=== PATIENT | female | born 1970 | race Two or more races ===

== ENCOUNTER 2020-06-08 07:12 | Inpatient (IN) | payer OTHER ==
[2020-06-08] MEDS ORDERED: SODIUM CHLORIDE 1,000 ML IV STA ×3 (07:53→13:23)
[2020-06-08] MEDS ORDERED: ONDANSETRON 4 MG/2 ML VIAL IVPUSH ONE (07:53)
[2020-06-08] MEDS ORDERED: FAMOTIDINE 20 MG/50 ML IVPB 20 MG/50 ML MG IVPB ONE ×2 (07:53→08:18)
[2020-06-08] MEDS ORDERED: ACETAMINOPHEN 1000 MG/100 ML VIAL (NON FORMULARY) IVPB ONE (07:55)
[2020-06-08] MEDS ORDERED: ONDANSETRON 4 MG/2 ML VIAL ONE (08:19)
[2020-06-08] MEDS ORDERED: ACETAMINOPHEN INJECTION 100 ML IVPB ONE (08:22)
[2020-06-08] MEDS ORDERED: morphine CARPU-JECT 4 MG/1 ML DISP.SYRIN IVPUSH ONE ×3 (08:28→14:50)
[2020-06-08 08:47] LABS: VENOUS BASE EXCESS -2.2 mmol/L (-2-2); VENOUS O2 SATURATION 63.5 % (70-80); VENOUS PCO2 33.3 mmHg (38-52); VENOUS PH 7.423 (7.310-7.410)
[2020-06-08 08:56] LABS: HEMATOCRIT 43.8 % (32.4-45.2); MCH 31.6 pg (25.7-33.7); MCHC 34.3 g/dl (32.0-36.0); MEAN CELL VOLUME 92.1 fl (80-96); MEAN PLT VOLUME 10.3 fl (7.5-11.1); PLATELET COUNT 133 K/MM3 (134-434); RBC 4.76 M/mm3 (3.60-5.2)
[2020-06-08 09:01] LABS: CHLORIDE 83 mmol/L (98-107); POTASSIUM 3.2 mmol/L (3.5-5.1); SODIUM 125 mmol/L (136-145)
[2020-06-08 09:04] LABS: ALBUMIN 4.5 g/dl (3.4-5.0); GLUCOSE,RANDOM 161 mg/dL (74-106)
[2020-06-08 09:05] LABS: ANION GAP 17 MMOL/L (8-16); BLOOD UREA NITROGEN 7.8 mg/dL (7-18); CALCIUM 10.3 mg/dL (8.5-10.1); CO2 25 mmol/L (21-32); MAGNESIUM 1.2 mg/dL (1.8-2.4)
[2020-06-08 09:06] LABS: SGOT/AST 127 U/L (15-37); SGPT/ALT 148 U/L (13-61)
[2020-06-08 09:08] LABS: BILIRUBIN,TOTAL 1.3 mg/dL (0.2-1); CREATININE 0.6 mg/dL (0.55-1.3); TOT PROT 8.9 g/dl (6.4-8.2)
[2020-06-08] MEDS ORDERED: MAGNESIUM SULF 50% (8.12 MEQ/2 ML-1 GM VIAL) IVPB ONE (09:08)
[2020-06-08 09:09] LABS: ALK PHOS 70 U/L (45-117)
[2020-06-08 09:14] LABS: LIPASE 5674 U/L (73-393)
[2020-06-08] MEDS ORDERED: morphine SULFATE 4 MG/ML VIAL ONE ×3 (09:37→14:53)
[2020-06-08] MEDS ORDERED: MAGNESIUM SULFATE IN WATER 2 GM/50 ML IVPB IVPB ONE (09:38)
[2020-06-08 11:59] LABS: EPI CELLS 8 /uL (0-25.1); HYALINE CASTS 1 /uL (0-3.1); URINE APPEARANCE CLEAR; URINE BACTERIA 954 /uL (0-1359); URINE BILIRUBIN NEGATIVE (NEGATIVE); URINE COLOR YELLOW; URINE GLUCOSE (UA) TRACE (NEGATIVE); URINE KETONE 4+ (NEGATIVE); URINE LEUK ESTERASE NEGATIVE (NEGATIVE); URINE NITRITE NEGATIVE (NEGATIVE); URINE PROTEIN 3+ (NEGATIVE); URINE RBC 83 /uL (0-23.9); URINE WBC 4 /uL (0-25.8)
[2020-06-08 12:38] LABS: CALCIUM 8.9 mg/dL (8.5-10.1)
[2020-06-08 12:42] LABS: CREATININE 0.5 mg/dL (0.55-1.3)
[2020-06-08 12:43] LABS: BILIRUBIN,TOTAL 1.4 mg/dL (0.2-1)
[2020-06-08 12:44] LABS: TOT PROT 7.7 g/dl (6.4-8.2)
[2020-06-08 13:12] LABS: POTASSIUM 2.7 mmol/L (3.5-5.1)
[2020-06-08] MEDS ORDERED: POTASSIUM CHLORIDE TABS 10 MEQ TABLET.ER (FP) PO ONE (13:17)
[2020-06-08] MEDS ORDERED: KCL 10 MEQ IVPB 10 MEQ/100 ML INFUS.BAG IVPB ONE ×3 (13:44→15:52)
[2020-06-08] MEDS ORDERED: POTASSIUM CHLORIDE TABS 20 MEQ TABLET.ER (FP) PO ONE (13:44)
[2020-06-08] MEDS: KCL 10 MEQ IVPB 10 MEQ/100 ML INFUS.BAG IVPB SCH ×3 (13:51→15:55)
[2020-06-08] MEDS ORDERED: amLODIPine BESYLATE 5 MG TABLET (FP) PO ONE (14:17)
[2020-06-08] MEDS ORDERED: amLODIPine BESYLATE 5 MG TABLET (FP) ONE (14:21)
[2020-06-08] MEDS ORDERED: LACTATED RINGERS SOLUTION 1,000 ML IV SCH (17:00)
[2020-06-08] MEDS ORDERED: MORPHINE SULFATE 2 MG/ML VIAL IVPUSH PRN (17:03)
[2020-06-08] MEDS ORDERED: TRIMETHOBENZAMIDE HCL 200MG/2ML INJ IM ONE (21:17)
[2020-06-09 02:24] LABS: POTASSIUM 4.1 mmol/L (3.5-5.1)
[2020-06-09 02:25] LABS: CALCIUM 9.6 mg/dL (8.5-10.1)
[2020-06-09 02:26] LABS: BLOOD UREA NITROGEN 5.6 mg/dL (7-18)
[2020-06-09 02:31] LABS: CREATININE 0.4 mg/dL (0.55-1.3)
[2020-06-09 05:41] VITALS: BMI 27.6
[2020-06-09] MEDS ORDERED: ACETAMINOPHEN 1000 MG/100 ML VIAL (NON FORMULARY) IVPB ONE (06:34)
[2020-06-09 07:57] LABS: BASO % 0.2 % (0-2.0); EOS % 0.1 % (0-4.5); HEMATOCRIT 41.1 % (32.4-45.2); HEMOGLOBIN 13.9 GM/dL (10.7-15.3); LYMPH % 13.8 % (8-40); MCH 31.3 pg (25.7-33.7); MCHC 33.7 g/dl (32.0-36.0); MEAN CELL VOLUME 92.8 fl (80-96); MEAN PLT VOLUME 10.7 fl (7.5-11.1); MONO % 8.5 % (3.8-10.2); NEUT % 77.4 % (42.8-82.8); PLATELET COUNT 108 K/MM3 (134-434); RBC 4.43 M/mm3 (3.60-5.2); RDW 15.2 % (11.6-15.6); WHITE BLOOD COUNT 8.6 K/mm3 (4.0-10.0)
[2020-06-09 08:39] LABS: CHLORIDE 95 mmol/L (98-107); POTASSIUM 3.2 mmol/L (3.5-5.1); SODIUM 131 mmol/L (136-145)
[2020-06-09 08:49] LABS: ANION GAP 9 MMOL/L (8-16); CO2 27 mmol/L (21-32)
[2020-06-09 08:50] LABS: MAGNESIUM 1.6 mg/dL (1.8-2.4)
[2020-06-09 08:51] LABS: ALBUMIN 3.6 g/dl (3.4-5.0); CALCIUM 9.5 mg/dL (8.5-10.1)
[2020-06-09 08:52] LABS: GLUCOSE,RANDOM 106 mg/dL (74-106); SGOT/AST 144 U/L (15-37); SGPT/ALT 149 U/L (13-61)
[2020-06-09 08:53] LABS: CREATININE 0.4 mg/dL (0.55-1.3)
[2020-06-09 08:54] LABS: PHOSPHOROUS 2.9 mg/dL (2.5-4.9); TRIGLYCERIDES 41 mg/dL (0-150)
[2020-06-09 09:12] LABS: CHOLESTEROL 231 mg/dL (50-200)
[2020-06-09 09:13] LABS: BILIRUBIN,TOTAL 1.4 mg/dL (0.2-1); LDL CHOLESTEROL (ONLY SJRH) 35 mg/dL (5-100)
[2020-06-09 09:14] LABS: ALK PHOS 56 U/L (45-117)
[2020-06-09 09:49] LABS: HDL CHOLESTEROL 181 mg/dL (40-60); LIPASE > 1500 U/L (73-393)
[2020-06-09] MEDS: ENOXAPARIN NA (PORCINE) 40 MG/0.4 ML DISP.SYRIN SQ SCH (10:13)
[2020-06-09] MEDS: PANTOPRAZOLE SODIUM 40 MG VIAL IVPUSH SCH (10:13)
[2020-06-09] MEDS: MAGNESIUM SULF 50% (8.12 MEQ/2 ML-1 GM VIAL) IVPB SCH ×2 (14:03→16:11)
[2020-06-09] MEDS: SODIUM CHLORIDE 1,000 ML IV SCH (14:03)
[2020-06-09] MEDS: POTASSIUM CHLORIDE ORAL LIQUID 20 MEQ/15 ML PO SCH ×2 (14:04→17:32)
[2020-06-09] MEDS ORDERED: LACTULOSE 20 GM/30 ML UDC (FOR ORAL USE ONLY) PO ONE (16:07)
[2020-06-09] MEDS ORDERED: SENNOSIDES 8.6MG TABLET (FP) PO PRN (16:09)
[2020-06-09] MEDS ORDERED: amLODIPine BESYLATE 5 MG TABLET (FP) PO ONE (21:38)
[2020-06-09] MEDS: POLYETHYLENE GLYCOL 3350 119 GM BTL PO SCH (21:50)
[2020-06-10] MEDS ORDERED: traMADol HCL 50 MG TABLET PO ONE (03:26)
[2020-06-10] MEDS: amLODIPine BESYLATE 5 MG TABLET (FP) PO SCH (09:30)
[2020-06-10] MEDS: ENOXAPARIN NA (PORCINE) 40 MG/0.4 ML DISP.SYRIN SQ SCH (09:30)
[2020-06-10] MEDS: POLYETHYLENE GLYCOL 3350 119 GM BTL PO SCH ×2 (09:30→22:30)
[2020-06-10] MEDS: PANTOPRAZOLE SODIUM 40 MG VIAL IVPUSH SCH (09:30)
[2020-06-10 10:34] LABS: BASO % 0.3 % (0-2.0); EOS % 1.2 % (0-4.5); HEMATOCRIT 35.1 % (32.4-45.2); HEMOGLOBIN 11.9 GM/dL (10.7-15.3); LYMPH % 21.2 % (8-40); MCH 31.6 pg (25.7-33.7); MEAN CELL VOLUME 93.1 fl (80-96); MEAN PLT VOLUME 10.4 fl (7.5-11.1); MONO % 11.6 % (3.8-10.2); NEUT % 65.7 % (42.8-82.8); PLATELET COUNT 87 K/MM3 (134-434); RBC 3.78 M/mm3 (3.60-5.2); RDW 14.7 % (11.6-15.6); WHITE BLOOD COUNT 6.7 K/mm3 (4.0-10.0)
[2020-06-10 11:00] LABS: CALCIUM 8.5 mg/dL (8.5-10.1)
[2020-06-10 11:01] LABS: ALBUMIN 3.1 g/dl (3.4-5.0); MAGNESIUM 1.7 mg/dL (1.8-2.4)
[2020-06-10 11:03] LABS: CREATININE 0.3 mg/dL (0.55-1.3)
[2020-06-10 11:05] LABS: BILIRUBIN,TOTAL 1.2 mg/dL (0.2-1); TOT PROT 6.3 g/dl (6.4-8.2)
[2020-06-10] MEDS: SODIUM CHLORIDE 1,000 ML IV SCH (12:15)
[2020-06-10] MEDS ORDERED: hydrOXYzine PAMOATE 50 MG CAPSULE (FP) PO PRN (14:27)
[2020-06-10] MEDS: POTASSIUM CHLORIDE TABS 20 MEQ TABLET.ER (FP) PO SCH ×2 (14:42→22:29)
[2020-06-10] MEDS ORDERED: MAGNESIUM OXIDE 400 MG TABLET (FP) PO ONE (15:00)
[2020-06-11] MEDS ORDERED: MELATONIN 5 MG TABLETS PO ONE (00:56)
[2020-06-11 08:45] LABS: BASO % 0.6 % (0-2.0); EOS % 1.4 % (0-4.5); HEMATOCRIT 35.9 % (32.4-45.2); LYMPH % 29.6 % (8-40); MCH 31.7 pg (25.7-33.7); MCHC 33.5 g/dl (32.0-36.0); MEAN CELL VOLUME 94.4 fl (80-96); MONO % 13.9 % (3.8-10.2); NEUT % 54.5 % (42.8-82.8); PLATELET COUNT 104 K/MM3 (134-434); RDW 15.1 % (11.6-15.6)
[2020-06-11] MEDS ORDERED: LACTULOSE 20 GM/30 ML UDC (FOR ORAL USE ONLY) PO ONE (08:49)
[2020-06-11 08:58] LABS: CALCIUM 9.3 mg/dL (8.5-10.1)
[2020-06-11 08:59] LABS: ALBUMIN 3.4 g/dl (3.4-5.0); MAGNESIUM 1.7 mg/dL (1.8-2.4)
[2020-06-11 09:01] LABS: CREATININE 0.4 mg/dL (0.55-1.3)
[2020-06-11 09:04] LABS: BILIRUBIN,TOTAL 0.9 mg/dL (0.2-1); TOT PROT 6.9 g/dl (6.4-8.2)
[2020-06-11] MEDS: PANTOPRAZOLE SODIUM 40 MG VIAL IVPUSH SCH (09:56)
[2020-06-11] MEDS: POLYETHYLENE GLYCOL 3350 119 GM BTL PO SCH (09:56)
[2020-06-11] MEDS: ENOXAPARIN NA (PORCINE) 40 MG/0.4 ML DISP.SYRIN SQ SCH (09:56)
[2020-06-11] MEDS: amLODIPine BESYLATE 5 MG TABLET (FP) PO SCH (09:56)
[2020-06-11] MEDS: SODIUM CHLORIDE 1,000 ML IV SCH ×2 (09:58→17:34)
[2020-06-11] MEDS ORDERED: MULTIVITAMINS (DAILY MVI) TABLET (FP) PO SCH (10:00)
[2020-06-11] MEDS ORDERED: FOLIC ACID 1 MG TABLET (FP) PO SCH (10:00)
[2020-06-11] MEDS ORDERED: THIAMINE HCL 100 MG TABLET (FP) PO SCH (10:00)
[2020-06-11] MEDS ORDERED: MAGNESIUM OXIDE 400 MG TABLET (FP) PO ONE (10:01)
[2020-06-11] MEDS ORDERED: BACLOFEN 10 MG TABLET (FP) PO PRN (10:03)
[2020-06-11] MEDS ORDERED: LIDOCAINE 5% TOPICAL PATCH TP SCH (10:15)
[2020-06-11 16:59] VITALS: BP 152/97; PULSE 103; TEMP 99
[2020-06-11] MEDS ORDERED: LIPASE/PROTEASE/AMYLASE 36,000 UNIT CAPSULE PO SCH (17:30)
[2020-06-11] MEDS ORDERED: SIMETHICONE 80 MG TAB.CHEW (FP) PO SCH (18:00)
[2020-06-11] MEDS ORDERED: PANTOPRAZOLE 40 MG TABLET PO SCH (22:00)
[2020-06-11] MEDS ORDERED: LIDOCAINE PATCH REMOVAL MC SCH ×2 (22:00)
== END 2020-06-11 19:15 | disposition home or self-care (01) | DRG 282 ==
LOC: JER 07:12 → JERBED 13:43 → J4W 06-09 02:42
PROVIDERS: ADMIT Internal Medicine; ATTEND Nurse Practitioner Acute Care
DX: K85.90 Acute pancreatitis without necrosis or infection, unspecified (principal); I10 Essential (primary) hypertension; E87.6 Hypokalemia; F10.20 Alcohol dependence, uncomplicated; I16.0 Hypertensive urgency; E87.1 Hypo-osmolality and hyponatremia; E83.42 Hypomagnesemia; F32.9 Major depressive disorder, single episode, unspecified; K76.0 Fatty (change of) liver, not elsewhere classified; K42.9 Umbilical hernia without obstruction or gangrene; R31.9 Hematuria, unspecified; Z98.84 Bariatric surgery status
CPT/HCPCS: 36415; 71046-TC-FY; 74019-TC-FY; 74177-TC; 74182-TC; 76705-TC; 80048; 80053; 80061; 80074; 80307; 81003; 82150; 82803; 83605; 83615; 83690; 83721; 83735; 84100; 84484; 84703; 85025; 85027; 87086; 93005; 93010; 97116-GP; 97161-GP; 99285-25; A9579; C9803; J0131; U0003